=== PATIENT | male | born 1950 | race Caucasian/White ===

== ENCOUNTER 2017-01-07 23:19 | Emergency (ER) | payer BC ==
--- NOTE | 2017-01-07 23:25 | EDM.PDOC ---
ED HPI GENERAL MEDICAL PROBLEM - General Chief Complaint: Neurological Problem Stated Complaint: WEAKNESS Time Seen by Provider: 01/07/17 23:20 - History of Present Illness INITIAL COMMENTS - FREE TEXT/NARRATIVE: HISTORY AND PHYSICAL: History of present illness: Patient is 66-year-old white male with a history of atrial fibrillation who also is undergoing chemotherapy for lung cancer was a long-time smoker objective a concern of right-sided weakness and slurred speech this was noted on a phone call to his sister that prompted her to contact paramedics for wellness check he then was brought to the emergency department his last known well time is unknown. The patient denies chest pain trouble breathing in spite of obvious slurred speech and right facial droop ear patient does not appreciate any speech changes he does appreciate right upper [place] weakness that is new per him. On arrival he is noted to be in A. fib with rapid ventricular response and although his medical record does reflect a prior episode of such patient is unfamiliar with any such condition. Review of systems: As per history of present illness and below otherwise all systems reviewed and negative. Past medical history: As per history of present illness and as reviewed below otherwise noncontributory. Surgical history: As per history of present illness and as reviewed below otherwise noncontributory. Social history: No reported history of drug or alcohol abuse. Family history: As per history of present illness and as reviewed below otherwise noncontributory. Physical exam: HEENT: Atraumatic, normocephalic, pupils reactive, negative for conjunctival pallor or scleral icterus, mucous membranes moist, throat clear, neck supple, nontender, trachea midline. Lungs: Clear to auscultation, breath sounds equal bilaterally, chest nontender. Heart: S1S2, irregularly irregular, negative for clicks, rubs, or JVD. Abdomen: Soft, nondistended, nontender. Negative for masses or hepatosplenomegaly. Negative for costovertebral tenderness. Pelvis: Stable nontender. Genitourinary: Deferred. Rectal: Deferred. Extremities: Atraumatic, negative for cords or calf pain. Neurovascular unremarkable. Neuro: Awake, right upper extremity weakness and right facial droop noted her motor is 3-4/5 in right upper extremity he is also noted to have slurred speech. Stroke still pending Diagnostics: CBC CMP PT/INR troponin EKG chest x-ray CT brain EtOH urine drug screen Therapeutics: IV O2 monitor Impression: #1 acute CVA #2 atrial for ablation with rapid ventricular response #3 history of lung cancer Definitive disposition and diagnosis as appropriate pending reevaluation and review of above. - Related Data Allergies Allergy/AdvReac Type Severity Reaction Status Date / Time No Known Allergies Allergy Verified 11/23/15 23:02 Past Medical History HEENT History: Reports: Macular Degeneration, Other (See Below) Other HEENT History: needs hearing aids but not eavaluated yet Cardiovascular History: Reports: Afib (diagnosed 01/04/2016). Denies: Angina, Automatic Implantable Cardioverter Defibrillators, Bypass, CAD, Cardiomyopathy, Congenital Septal Defect, Heart Failure, Heart Valve Replacement, Hypertension, VA, PVD Respiratory History: Reports: COPD Musculoskeletal History: Reports: Other (See Below) Other Musculoskeletal History: recent rib fracture on the left side (3 ribs- cracked) from fall. Oncologic (Cancer) History: Reports: Other (See Below) - Past Surgical History HEENT Surgical History: Reports: Other (See Below) Social & Family History - Family History Family Medical History: Noncontributory Cardiac: Reports: None Oncologic: Reports: Bone Other Oncologic Family History: father of bone ca - Tobacco Use Smoking Status *Q: Current Every Day Smoker Years of Tobacco use: 41 Packs/Tins Daily: 0.2 Second Hand Smoke Exposure: Yes - Alcohol Use Days Per Week of Alcohol Use: 4 Number of Drinks Per Day: 5 Total Drinks Per Week: 20 - Recreational Drug Use Recreational Drug Use: No Drug Use in Last 12 Months: No ED ROS GENERAL - Review of Systems Review Of Systems: ROS reveals no pertinent complaints other than HPI. ED EXAM, GENERAL - Physical Exam Exam: See Below (Dictated) Course - Orders/Labs/Meds Orders: Active Orders 24 hr Category Date Time Status Blood Glucose Check, Bedside [RC] ONETIME Care 01/07/17 23:11 Active Cardiac Monitoring [RC] . DIRECTED Care 01/07/17 23:25 Active EKG Documentation Completion [RC] STAT Care 01/07/17 23:15 Active Head wo Cont [CT] Stat Exams 01/07/17 23:11 Taken CBC WITH AUTO DIFF [HEME] Stat Lab 01/07/17 23:23 Ordered COMPREHENSIVE METABOLIC PN,CMP [CHEM] Stat Lab 01/07/17 23:23 Ordered DRUG SCREEN, URINE [URCHEM] Stat Lab 01/07/17 23:23 Uncollected ETHANOL BLOOD MEDICAL [CHEM] Stat Lab 01/07/17 23:23 Ordered INR,PT,PROTHROMBIN TIME [COAG] Stat Lab 01/07/17 23:23 Ordered TROPONIN I [CHEM] Stat Lab 01/07/17 23:11 Ordered Meds: Medications Discontinued Medications Generic Name Dose Route Start Last Admin Trade Name Freq PRN Reason Stop Dose Admin Diltiazem HCl 20 mg 01/07/17 23:36 Diltiazem IVPUSH 01/07/17 23:37 ONETIME ONE Departure - Departure Time of Disposition: 23:39 Disposition: DC/Tfer to Acute Hospital 02 Condition: serious Clinical Impression: CVA (cerebral vascular accident), Atrial fibrillation with RVR - Discharge Information Forms: ED Department Discharge - My Orders Last 24 Hours: My Active Orders 01/07/17 23:11 Blood Glucose Check, Bedside [RC] ONETIME Head wo Cont [CT] Stat TROPONIN I [CHEM] Stat 01/07/17 23:15 EKG Documentation Completion [RC] STAT 01/07/17 23:23 CBC WITH AUTO DIFF [HEME] Stat COMPREHENSIVE METABOLIC PN,CMP [CHEM] Stat DRUG SCREEN, URINE [URCHEM] Stat ETHANOL BLOOD MEDICAL [CHEM] Stat INR,PT,PROTHROMBIN TIME [COAG] Stat 01/07/17 23:25 Cardiac Monitoring [RC] . DIRECTED - Assessment/Plan Last 24 Hours: My Active Orders 01/07/17 23:11 Blood Glucose Check, Bedside [RC] ONETIME Head wo Cont [CT] Stat TROPONIN I [CHEM] Stat 01/07/17 23:15 EKG Documentation Completion [RC] STAT 01/07/17 23:23 CBC WITH AUTO DIFF [HEME] Stat COMPREHENSIVE METABOLIC PN,CMP [CHEM] Stat DRUG SCREEN, URINE [URCHEM] Stat ETHANOL BLOOD MEDICAL [CHEM] Stat INR,PT,PROTHROMBIN TIME [COAG] Stat 01/07/17 23:25 Cardiac Monitoring [RC] . DIRECTED
[2017-01-07] MEDS: Diltiazem 25 MG/5 ML SDV IVPUSH ONE (23:41)
[2017-01-07] MEDS ORDERED: Sodium Chloride 0.9% 1,000 ML IV ONE (23:44)
[2017-01-08 00:02] LABS: CHLORIDE,CL 98 mmol/L (98-110); SODIUM,NA 137 mmol/L (136-146)
[2017-01-08 01:13] VITALS: BP 107/64
[2017-01-08] MEDS: Diltiazem 25 MG/5 ML SDV IVPUSH ONE (04:07)
--- NOTE | 2017-01-08 14:32 | CT ---
EXAM DATE: 01/07/17 PATIENT'S AGE: 66 Patient: VIOLA ALMONTE Facility: [place], [place] Site . Site : 1950 Study: CT Head STROKE PROTOCOL [id number]/29/2017 11:35:36 PM Ordering Physician: Edelmira Adhikari Final Report: HISTORY: Altered mental status. TECHNIQUE: Head was scanned in axial plane at 3 mm intervals without IV contrast. Reconstructed bone windows obtained as well as sagittal and coronal reconstructions. FINDINGS: The left maxillary sinus contains several small mucous retention cysts or polyps. Small mucous retention cyst or polyp is seen in the right. Neural mucosal thickening seen within the ethmoid air cells. The sphenoid and frontal sinuses are well aerated. Mastoid air cells are well aerated. The calvarium is intact. The ventricles and sulci are normal size shape and position. There is a 3.7 x 3.2 x 2.9 cm complex mass seen in the right frontal lobe. This has a low density center eccentric again rim. It there surrounding white matter edema with effacement of adjacent sulci. There is a 2nd similar complex mass in the high left parietal lobe this measures 2.4 x 3.3 x 2.5 cm with adjacent white matter edema. No midline shift is identified. No extra-axial fluid collections are seen. IMPRESSION: There are 2 complex mass is seen within the parenchyma, located in the right frontal and left parietal lobes with surrounding white matter edema. Presence of 2 lesions suggests this represents metastatic disease. MRI is recommended for further evaluation. Report called Dr Hickey 07 Jan 2017 @ 2341 hours. Dictated by Gypsy Rossi MD @ 01/07/2017 11:41:39 PM Dictated by: Gypsy Rossi MD @ 01/07/2017 23:44:35 (Electronic Signature) Report Signed by Proxy. [facility] HOSPITALGabriel
== END 2017-01-08 00:06 ==
LOC: MW.ED 23:19
DX: I63.9 Cerebral infarction, unspecified (principal); I48.91 Unspecified atrial fibrillation; C78.00 Secondary malignant neoplasm of unspecified lung; F17.210 Nicotine dependence, cigarettes, uncomplicated
CPT/HCPCS: 36415; 70450; 80053; 84484; 85025; 85610; 93005; 99285; G0480; J7040; 99284; J3490

== ENCOUNTER 2018-08-20 19:38 | Emergency (ER) | payer MEDICARE, BC ==
--- NOTE | 2018-08-20 20:08 | EDM.PDOC ---
ED HPI GENERAL MEDICAL PROBLEM - General Chief Complaint: Upper Extremity Injury/Pain Stated Complaint: FELL ON ICE Time Seen by Provider: 08/20/18 19:55 Source of Information: Reports: Patient History Limitations: Reports: No Limitations - History of Present Illness INITIAL COMMENTS - FREE TEXT/NARRATIVE: HISTORY AND PHYSICAL: History of present illness: Patient is a 68-year-old male here with complaint of right shoulder pain post fall. He states he tripped on the ice falling backwards landing against the garage door then falling to the ground hitting his right shoulder on some pipe. He denies any head injury, LOC, hip pain, abdominal pain. He denies distal numbness or tingling. Patient has history of small cell lung cancer, O2 saturation initially 85% on RA but improved to 91% on RA. He states this is normal for him. He denies chest pain or increased shortness of breath. Review of systems: As per history of present illness and below otherwise all systems reviewed and negative. Past medical history: As per history of present illness and as reviewed below otherwise noncontributory. Surgical history: As per history of present illness and as reviewed below otherwise noncontributory. Social history: No reported history of drug or alcohol abuse. Family history: As per history of present illness and as reviewed below otherwise noncontributory. Physical exam: General: Patient sitting comfortably in no acute distress and nontoxic appearing HEENT: Atraumatic, normocephalic, pupils reactive, negative for conjunctival pallor or scleral icterus, mucous membranes moist, throat clear, neck supple, nontender, trachea midline. No meningeal signs. Lungs: Clear to auscultation, breath sounds equal bilaterally, chest nontender. Heart: S1S2, regular, negative for clicks, rubs, or overt murmur. Abdomen: Soft, nondistended, nontender. Negative for masses or hepatosplenomegaly. Negative for costovertebral tenderness. Pelvis: Stable nontender. Genitourinary: Deferred. Rectal: Deferred. Extremities: pain to palpation of anterior right shoulder. CMS intact distally. negative for cords or calf pain. Neurovascular unremarkable. Neuro: Awake, alert, oriented. Cranial nerves II through XII unremarkable. Cerebellum unremarkable. Motor and sensory unremarkable throughout. Exam nonfocal. Notes: Discussed with Dr. Stacy, orthopedic surgeon at [facility], she recommends shoulder immobilization and follow up in ortho clinic. Diagnostics: x-ray right shoulder Therapeutics: Shoulder immobilizer Prescriptions: None Impression: Right humerus fracture Plan: 1. Ice, elevate, and motrin or tylenol as instructed 2. Follow up with ortho clinic, please call number provided to schedule an appointment 3. Return to ED as needed as discussed Definitive disposition and diagnosis as appropriate pending reevaluation and review of above. Right Shoulder Pain Score (Numeric/FACES): 5 - Related Data Allergies Allergy/AdvReac Type Severity Reaction Status Date / Time No Known Allergies Allergy Verified 08/20/18 19:44 Home Meds: Home Meds Digoxin 0.5 tab PO DAILY 01/07/17 [History] Famotidine 20 mg PO ASDIRECTED 01/07/17 [History] Levothyroxine [Synthroid] 200 mcg PO DAILY 01/07/17 [History] Loratadine 1 tab PO DAILY 01/07/17 [History] Albuterol [Ventolin HFA] 2 puff INH ASDIRECTED PRN 05/30/18 [History] levETIRAcetam [Keppra] 250 mg PO DAILY 05/30/18 [History] Past Medical History HEENT History: Reports: Macular Degeneration, Other (See Below) Other HEENT History: needs hearing aids but not eavaluated yet Cardiovascular History: Reports: Afib Respiratory History: Reports: COPD, Other (See Below) Other Respiratory History: Pt reports he is currently being treated for lung cancer Musculoskeletal History: Reports: Fracture, Other (See Below) Other Musculoskeletal History: recent rib fracture on the left side (3 ribs- cracked) from fall. Endocrine/Metabolic History: Reports: Hypothyroidism Oncologic (Cancer) History: Reports: Lung Other Oncologic History: Receiving chemo therapy for lung CA - Past Surgical History Head Surgeries/Procedures: Reports: None HEENT Surgical History: Reports: Other (See Below) Social & Family History - Family History Family Medical History: Noncontributory Cardiac: Reports: None Oncologic: Reports: Bone Other Oncologic Family History: father of bone ca - Caffeine Use Caffeine Use: Reports: None Review of Systems - Review of Systems Review Of Systems: ROS reveals no pertinent complaints other than HPI. ED EXAM, GENERAL - Physical Exam Exam: See Below (see dictation) Course - Vital Signs Last Recorded V/S: Last Vital Signs Temp 97 F 08/20/18 19:44 Pulse 90 08/20/18 20:33 Resp 22 H 08/20/18 20:33 BP 106/66 08/20/18 20:33 Pulse Ox 95 08/20/18 20:33 - Orders/Labs/Meds Orders: Active Orders 24 hr Category Date Time Status Shoulder Comp Rt [CR] Stat Exams 08/20/18 19:55 Ordered Departure - Departure Time of Disposition: 21:05 Disposition: Home, Self-Care 01 Condition: Good Clinical Impression: Right humeral fracture - Discharge Information Forms: ED Department Discharge Additional Instructions: The following information is given to patients seen in the emergency department who are being discharged to home. This information is to outline your options for follow-up care. We provide all patients seen in our emergency department with a follow-up referral. The need for follow-up, as well as the timing and circumstances, are variable depending upon the specifics of your emergency department visit. If you don't have a primary care physician on staff, we will provide you with a referral. We always advise you to contact your personal physician following an emergency department visit to inform them of the circumstance of the visit and for follow-up with them and/or the need for any referrals to a consulting specialist. The emergency department will also refer you to a specialist when appropriate. This referral assures that you have the opportunity for follow-up care with a specialist. All of these measure are taken in an effort to provide you with optimal care, which includes your follow-up. Under all circumstances we always encourage you to contact your private physician who remains a resource for coordinating your care. When calling for follow-up care, please make the office aware that this follow-up is from your recent emergency room visit. If for any reason you are refused follow-up, please contact the [facility] at and asked to speak to the emergency department charge nurse. [facility] Professional Building [address] [place] [address], [address] [place] [address] 1. Ice, elevate, and motrin or tylenol as instructed 2. Follow up with ortho clinic, please call number provided to schedule an appointment 3. Return to ED as needed as discussed - My Orders Last 24 Hours: My Active Orders 08/20/18 19:55 Shoulder Comp Rt [CR] Stat - Assessment/Plan Last 24 Hours: My Active Orders 08/20/18 19:55 Shoulder Comp Rt [CR] Stat
[2018-08-20 21:55] VITALS: BP 112/74
--- NOTE | 2018-08-21 13:43 | CR ---
EXAM DATE: 08/20/18 PATIENT'S AGE: 68 Patient: VIOLA ALMONTE Facility: [place], [place] Site . Site : 1950 Study: XRay Shoulder Right [id number]/9/2019 8:25:43 PM Ordering Physician: Doctor Cervantes Final Report: INDICATION: Fall. Technique: Two-views. FINDINGS: Recent appearing fracture in the neck of right proximal humerus. No significant displacement. Visualized right ribs are intact. There is abnormal density in the right lung suggesting fibrosis/scarring. Left internal jugular central line is present. No evidence of pneumothorax. IMPRESSION: Right humeral neck fracture without significant displacement. Dictated by Steven Sheriff MD @ Aug 20 2018 8:32PM (Electronic Signature) Report Signed by Proxy. KATHY
== END 2018-08-20 21:55 | disposition home or self-care (01) ==
LOC: MW.ED 19:38
DX: S42.214A Unspecified nondisplaced fracture of surgical neck of right humerus, initial encounter for closed fracture (principal); E03.9 Hypothyroidism, unspecified; I48.91 Unspecified atrial fibrillation; C34.90 Malignant neoplasm of unspecified part of unspecified bronchus or lung; W00.0XXA Fall on same level due to ice and snow, initial encounter; Z79.899 Other long term (current) drug therapy
CPT/HCPCS: 73030-26-RT; 73030-RT; 99283